=== PATIENT | female | born 1995 | race Caucasian/White ===

== ENCOUNTER 2023-04-25 06:52 | Inpatient (IN) | payer MEDICAID, SELFPAY ==
[2023-04-25] VITALS (84 sets, daily range): BP systolic 106–199; BP diastolic 57–112; PULSE 67–100; RESP 16–18; TEMP 36.5–36.7; O2SAT 96–100; BMI 37.7
--- NOTE | 2023-04-25 07:07 | P.OBHP_ITS ---
OB - H&P: HPI Labor/Induction History of Present Illness Date Seen: 04/25/23 Chief Complaint: IOL Chief complaint: maternity : 3 Para: 2 Narrative: Trinity Duval is a 27 year old female 3 para 2 at 39 weeks 4 days gestation by 1st trimester ultrasound, who presents for induction of labor for dates. She has felt well through her and has had no concerns. She was induced for 2 prior pregnancies and both were pretty fast labors that were uncomplicated. History of Present Dating criteria: based on LMP care: good care Ultrasounds: normal 1st trimester US and normal mid trimester US Medical complications: none Labs Blood type: O (+) positive Rubella: immune RPR/VDLR: nonreactive GBS status: negative HBsAG: negative Review of Systems Status of ROS: Reports: 10 or more systems reviewed and unremarkable except as noted in History and below Meds Home Medications and Allergies Home Medications Medication Instructions Recorded Confirmed Type vitamin with calcium 1 tab PO DAILY 04/25/23 04/25/23 History no.72-iron 27 mg-folic acid 1 mg tablet (WesTab Plus) Home Medication Comments: vitamin Allergies Allergy/AdvReac Type Severity Reaction Status Date / Time amoxicillin [From Augmentin] Allergy Unknown Verified 04/25/23 08:58 cefaclor Allergy Unknown Verified 04/25/23 08:54 clavulanic acid Allergy Unknown Verified 04/25/23 08:58 [From Augmentin] codeine Allergy Unknown Verified 04/25/23 08:54 lisdexamfetamine Allergy Unknown Verified 04/25/23 08:58 [From Vyvanse] OB - H&P: Exam Constitutional: Constitutional: no acute distress Routine HEENT Exam: Eye: Present normal appearance ENT: Present mucous membranes moist Routine Respiratory Exam: Respiratory: Present CTA bilaterally; Absent crackles Routine Cardiovascular Exam: Cardiovascular: RRR Detailed Labor and Delivery Exam: Patient Gravid: Yes Dilation (cm): 0 Effacement (%): 0 Cervix position: posterior Consistency: firm Cervical ripeness score: 0 Contraction frequency (min): 0 Fetus (Single): Heart Rate Baseline: 140 Monitor Accelerations: Present Monitor Decelerations: None Senior Living Variability: Moderate (6-25) OB - Problem Based A/P Additional Plan (1) Gestational hypertension: Status: Acute Plan Initially planned to induce for elective reasons but blood pressure was high on admission, first at 160/110, then came down to 140s/90s. Because she had one elevated blood pressure last week, she meets criteria for gestational hypertension. Will continue with plan for induction now and get preeclampsia labs. Will do cytotec per protocol due to unfavorable cervix with dailey of 0. Manage expectantly. Monitor BP per protocol. Delivery/Labor/Induction Plan Plan: induction Induction method: per misoprostol protocol
[2023-04-25 08:21] LABS: Hematocrit 37.7 % (33.0-51.0); Hemoglobin* 12.4 gm/dL (12.0-16.0); Mean Corpuscular HGB Conc 33 gm/dL (32-36); Mean Corpuscular Hemoglobin 28 pg (26-34); Mean Corpuscular Volume 85 fL (80-100); Platelet Count* 235 K/uL (140-440); Red Blood Count 4.42 m/uL (4.00-5.20); White Blood Count* 12.05 K/uL (4.50-11.00)
[2023-04-25] MEDS: miSOPROStoL 25 MCG/0.25 TABLET VAGINAL (08:23)
[2023-04-25 08:29] LABS: Slide Review Reflex No
[2023-04-25 08:47] LABS: Alanine Aminotransferase* 16 U/L (4-35); Aspartate Amino Transferase* 22 U/L (12-35); Blood Urea Nitrogen* 11 mg/dL (5-24); Creatinine* 0.4 mg/dL (0.5-1.5); Est. Creatinine Clearance* 247.01; Estimated Glomerular Filt Rate 137 ml/min
[2023-04-25 09:45] LABS: Total Protein Urine < 5 mg/dL
[2023-04-25 09:46] LABS: Creatinine Urine 274.3 mg/dL
[2023-04-25] MEDS: LACTATED RINGERS 1000 ML 1,000 ML 125 ML IV ×2 (12:44→15:09)
[2023-04-25] MEDS: OXYTOCIN 30 unit/500 ML in NS 30 UNIT/500 ML BAG IVPB (12:45)
[2023-04-25] MEDS: LACTATED RINGERS 1000 ML 1,000 ML 1200 ML IV (13:37)
[2023-04-25] MEDS: ROPIVACAINE 0.2% 100 ml 100 ML 12 MG EPIDURAL (13:45)
[2023-04-25] MEDS: PHENYLEPHRINE 100 MCG/ML SYRINGE IVP ×2 (14:14→14:32)
[2023-04-25] MEDS: LIDOCAINE 2% (PF) 5 ML VIAL EPIDURAL ×3 (15:37→18:05)
--- NOTE | 2023-04-25 16:56 | P.ANBPRC_ITS ---
PFSH PFSH Social History What is your current living situation?: I presently have a place to live Problems where you live: no known problems In the past 12 months, utilities in danger of being shut off: no In past 12 months, lack of transportation kept you from medical appts, meetings, work, or getting things needed for daily living: no In the past 12 mos, have been you worried that your food would run out before you had money to buy more?: never true In the past 12 mos, the food you bought just didn't last and you didn't have money to buy more?: never true Smoking Status: Former smoker How often does anyone, including family, friends and others, physically hurt you : never How often does anyone, including family, friends and others, insult or talk down to you: never How often does anyone, including family, friends and others, threaten you with harm: never How often does anyone, including family, friends and others, scream or curse at you: never Meds Home Medications and Allergies Home Medications Medication Instructions Recorded Confirmed Type vitamin with calcium 1 tab PO DAILY 04/25/23 04/25/23 History no.72-iron 27 mg-folic acid 1 mg tablet (WesTab Plus) Allergies Allergy/AdvReac Type Severity Reaction Status Date / Time amoxicillin [From Augmentin] Allergy Unknown Verified 04/25/23 08:58 cefaclor Allergy Unknown Verified 04/25/23 08:54 clavulanic acid Allergy Unknown Verified 04/25/23 08:58 [From Augmentin] codeine Allergy Unknown Verified 04/25/23 08:54 lisdexamfetamine Allergy Unknown Verified 04/25/23 08:58 [From Vyvanse] Results Labs Labs: Laboratory Results - last 24 hr 04/25/23 04/25/23 08:09 Unknown WBC 12.05 H RBC 4.42 Hgb 12.4 Hct 37.7 MCV 85 MCH 28 MCHC 33 Plt Count 235 BUN 11 Creatinine 0.4 L Estimated Creat Clear 247.01 Estimated GFR 137 AST 22 ALT 16 Urine Creatinine 274.3 Protein/Creatinin Ratio 0.00 Urine Total Protein < 5 Blood Type O Positive Antibody Screen NEGATIVE Vital Signs Vital Signs: Last Vital Signs Temp 97.9 F 04/25/23 15:35 Pulse 76 04/25/23 16:51 Resp 16 04/25/23 15:35 BP 131/74 04/25/23 16:51 Pulse Ox 100 04/25/23 13:37 Weight: 129.727 kg Height: 185.42 cm Anesthesia Procedures Epidural Insertion Patient Location: OB Start Time: 13:15 Stop Time: 14:15 Start Date: 04/25/23 Stop Date: 04/25/23 Reason for Block: procedure for pain Patient Position: sitting Performed By: Damian Moreno Preanesthetic Checklist: IV checked, risks and benefits discussed, surgical consent, monitors and equipment checked, pre-op evaluation, timeout performed and anesthesia consent Prep: chlorhexidine gluconate Monitoring: blood pressure monitoring, continuous pulse oximetry and heart rate Approach: midline Vertebral Space: lumbar (1-5) Epidural Technique: MAYELA saline Needle Type: Tuohy needle Injection Technique: continuous catheter Needle gauge: 17 Needle Length (cm): 10 cm Needle Insertion Depth (cm): 9 Catheter Gauge: 19 Catheter Type: multi-orifice Catheter at skin depth (cm): 15 Test Dose Result: negative and lidocaine 1.5% with epinephrine 1 to 200,000
[2023-04-25] MEDS: fentaNYL 100 MCG/2 ML inj EPIDURAL (18:05)
--- NOTE | 2023-04-25 18:05 | P.OBPN_ITS ---
Subjective Time Seen by Provider: 17:30 Date Seen: 04/25/23 Narrative: Had good change with 1 dose of cytotec and changed to pitocin about 1300. Has gotten an epidural but it has not been working well and she is quite uncomfortable. Only on 3 of pitocin. [place] a gush just before exam. Objective Exam: Cervix: 4.5/50%/-2 FHT 140 with moderate variability and positive accelerations, no decels [place]: irregular Vital Signs: Last Vital Signs Temp 98.1 F 04/25/23 17:06 Pulse 84 04/25/23 17:06 Resp 18 04/25/23 17:06 BP 141/83 H 04/25/23 17:06 Pulse Ox 100 04/25/23 17:59 Assessment Heart Rate Baseline: 140 Monitor Accelerations: Present Monitor Decelerations: None Plan Plan: BP has been in range through most of labor. No severe pressures. HELLP labs negative. UPCR negative. Continue to increase pitocin as tolerated. Not in active labor yet but will hopefully go quick once it starts. Redose epidural per anesthesia. Anticipate .
--- NOTE | 2023-04-25 18:19 | P.ANBPRC_ITS ---
PFSH PFSH Social History What is your current living situation?: I presently have a place to live Problems where you live: no known problems In the past 12 months, utilities in danger of being shut off: no In past 12 months, lack of transportation kept you from medical appts, meetings, work, or getting things needed for daily living: no In the past 12 mos, have been you worried that your food would run out before you had money to buy more?: never true In the past 12 mos, the food you bought just didn't last and you didn't have money to buy more?: never true Smoking Status: Former smoker How often does anyone, including family, friends and others, physically hurt you : never How often does anyone, including family, friends and others, insult or talk down to you: never How often does anyone, including family, friends and others, threaten you with harm: never How often does anyone, including family, friends and others, scream or curse at you: never Meds Home Medications and Allergies Home Medications Medication Instructions Recorded Confirmed Type vitamin with calcium 1 tab PO DAILY 04/25/23 04/25/23 History no.72-iron 27 mg-folic acid 1 mg tablet (WesTab Plus) Allergies Allergy/AdvReac Type Severity Reaction Status Date / Time amoxicillin [From Augmentin] Allergy Unknown Verified 04/25/23 08:58 cefaclor Allergy Unknown Verified 04/25/23 08:54 clavulanic acid Allergy Unknown Verified 04/25/23 08:58 [From Augmentin] codeine Allergy Unknown Verified 04/25/23 08:54 lisdexamfetamine Allergy Unknown Verified 04/25/23 08:58 [From Vyvanse] Results Labs Labs: Laboratory Results - last 24 hr 04/25/23 04/25/23 08:09 Unknown WBC 12.05 H RBC 4.42 Hgb 12.4 Hct 37.7 MCV 85 MCH 28 MCHC 33 Plt Count 235 BUN 11 Creatinine 0.4 L Estimated Creat Clear 247.01 Estimated GFR 137 AST 22 ALT 16 Urine Creatinine 274.3 Protein/Creatinin Ratio 0.00 Urine Total Protein < 5 Blood Type O Positive Antibody Screen NEGATIVE Vital Signs Vital Signs: Last Vital Signs Temp 98.1 F 04/25/23 17:06 Pulse 100 04/25/23 18:16 Resp 18 04/25/23 17:06 BP 135/77 04/25/23 18:16 Pulse Ox 100 04/25/23 17:59 Weight: 129.727 kg Height: 185.42 cm Anesthesia Procedures Epidural Insertion Patient Location: OB Start Time: Stop Time: 18:20 Start Date: 04/25/23 Stop Date: 04/25/23 Reason for Block: procedure for pain Patient Position: sitting Performed By: Damian Moreno Preanesthetic Checklist: IV checked, risks and benefits discussed, surgical consent, monitors and equipment checked, pre-op evaluation, timeout performed and anesthesia consent Prep: chlorhexidine gluconate Monitoring: blood pressure monitoring, continuous pulse oximetry and heart rate Approach: midline Vertebral Space: lumbar (1-5) Epidural Technique: MAYELA saline Needle Type: Tuohy needle Injection Technique: continuous catheter Needle gauge: 17 Needle Length (cm): 10 cm Needle Insertion Depth (cm): 10 Catheter Gauge: 19 Catheter Type: multi-orifice Catheter at skin depth (cm): 17 Test Dose Result: negative and lidocaine 1.5% with epinephrine 1 to 200,000
--- NOTE | 2023-04-25 20:11 | W.PM.VAGDEL1 ---
Procedure Procedure Done: Global Procedure Details: Induction for gestational hypertension at 39 4/7. 1 dose of cytotec, then transitioned to pitocin. Epidural for analgesia. Progressed to complete and rapidly delivered a in the bed. I was there for delivery. Cord clamped x2 and cut after 2 minutes. Apgars 9 and 9. Small periurethral laceration, not bleeding. No repair. Placenta delivered intact and spontaneously. No complications. Events: Gestational Hypertension Intrapartal Events: Labor Augmentation and Labor Induction Delivery monitor: external FHT Route of delivery: Laceration description: Periurethral - 1st Degree Estimated blood loss (mL): 100 Anesthesia type: Epidural Disposition: floor [place] Infant Gender: Male presentation: vertex Placental Delivery Description: Spontaneous Cord Description: 3 Vessels
[2023-04-26] VITALS (7 sets, daily range): BP systolic 122–156; BP diastolic 74–94; PULSE 66–82; RESP 16; TEMP 36.4–36.8; O2SAT 97–98
[2023-04-26] MEDS: ACETAMINOPHEN 500 MG TABLET 1000 MG PO ×2 (04:45→22:50)
[2023-04-26] MEDS: IBUPROFEN 600 MG TABLET PO ×2 (09:17→21:08)
[2023-04-26] MEDS: DOCUSATE SODIUM 100 MG CAPSULE PO (09:24)
[2023-04-26] MEDS: NIFEdipine 30 MG TAB.ER.24 PO (10:23)
[2023-04-26 10:39] LABS: Hematocrit 32.2 % (33.0-51.0); Hemoglobin* 10.8 gm/dL (12.0-16.0); Mean Corpuscular HGB Conc 34 gm/dL (32-36); Mean Corpuscular Hemoglobin 28 pg (26-34); Mean Corpuscular Volume 85 fL (80-100); Platelet Count* 204 K/uL (140-440); White Blood Count* 11.55 K/uL (4.50-11.00)
[2023-04-26 10:47] LABS: Slide Review Reflex No
[2023-04-26 10:50] LABS: Aspartate Amino Transferase* 23 U/L (12-35); Creatinine* 0.4 mg/dL (0.5-1.5); Est. Creatinine Clearance* 247.01; Estimated Glomerular Filt Rate 137 ml/min
[2023-04-26 10:51] LABS: Alanine Aminotransferase* 14 U/L (4-35); Blood Urea Nitrogen* 7 mg/dL (5-24)
[2023-04-26] MEDS: MAGNESIUM IV 4 GM/100 ML PIGGYBACK IVPB (11:48)
[2023-04-26] MEDS: SODIUM CHLORIDE 0.9 % (FLUSH) 10 ML SYRINGE IVF (11:50)
[2023-04-26] MEDS: LACTATED RINGERS 1000 ML IV (11:50)
--- NOTE | 2023-04-26 11:51 | P.OBPN_ITS ---
OB - PN:Subj Subjective Time Seen by Provider: 11:51 Date Seen: 04/26/23 Patient comments OB post-: no complaints, pain well controlled, tolerating diet and flatus present infant status: bottle and doing well OB - PN: Obj Exam Physical Exam: Vital signs: Temp Pulse Resp BP Pulse Ox O2 Del Method 97.5 F L 72 16 156/94 H 97 Room Air 04/26/23 08:00 04/26/23 09:45 04/26/23 09:45 04/26/23 09:45 04/26/23 09:45 04/26/23 09:45 Constitutional: Constitutional: no acute distress Routine HEENT Exam: Head: Present atraumatic and normal inspection ENT: Present mucous membranes moist Routine Chest/Breast/Axilla Exam: Chest wall: Absent tenderness Routine Respiratory Exam: Respiratory: Present CTA bilaterally Routine Cardiovascular Exam: Cardiovascular: Present RRR, S1 and S2; Absent murmur Routine Rectal Exam: Patient deferred: visual exam Routine Exam: Patient deferred: external exam Routine Extremities Exam: Extremities: Present full ROM; Absent calf tenderness or pedal edema Routine Back/Spine/Pelvis Exam: Back/Spine: Present full ROM Routine Neurological Exam: Neurological: Present alert and oriented X3 Routine Psychiatric Exam: Psychiatric: Present normal affect OB - PN: Obj Data Labs Labs: Laboratory Results - last 24 hr 04/26/23 10:28 WBC 11.55 H RBC 3.80 L Hgb 10.8 L Hct 32.2 L MCV 85 MCH 28 MCHC 34 Plt Count 204 BUN 7 Creatinine 0.4 L Estimated Creat Clear 247.01 Estimated GFR 137 AST 23 ALT 14 OB - PN: A/P Delivery Assessment and Plan (1) Gestational hypertension: Status: Acute (2) Preeclampsia in period: Problem details: Had severe range blood pressures overnight 04/25-04/26. Status: Acute Assessment and Plan: - Preeclampsia labs reassuring. - Severe range blood pressures immediately following delivery. Magnesium was not started then, but I discussed with DIRECTOR OF TAX SERVICES that we should start magnesium now for these elevated BPs. - Nifedipine started for bp control. - q6h labs - Ins/outs. (3) (normal spontaneous vaginal delivery): Status: Acute Assessment and Plan: - recovering well from vaginal delivery Plan - Start magnesium now, monitor BPs closely Plan day: 1 Comments: - see above. Will need to stay until blood pressures reliably <130/80 and 24 hours of magnesium completed.
[2023-04-26 18:02] LABS: Hematocrit 31.7 % (33.0-51.0); Hemoglobin* 10.4 gm/dL (12.0-16.0); Mean Corpuscular HGB Conc 33 gm/dL (32-36); Mean Corpuscular Hemoglobin 28 pg (26-34); Mean Corpuscular Volume 86 fL (80-100); Platelet Count* 206 K/uL (140-440); Red Blood Count 3.68 m/uL (4.00-5.20); White Blood Count* 11.92 K/uL (4.50-11.00)
[2023-04-26 18:09] LABS: Slide Review Reflex No
[2023-04-26 18:15] LABS: Alanine Aminotransferase* 16 U/L (4-35); Aspartate Amino Transferase* 22 U/L (12-35); Blood Urea Nitrogen* 8 mg/dL (5-24); Creatinine* 0.5 mg/dL (0.5-1.5); Est. Creatinine Clearance* 197.61; Estimated Glomerular Filt Rate 130 ml/min; Magnesium* 3.7 mg/dL (1.5-2.6)
[2023-04-26] MEDS: LACTATED RINGERS 1000 ML 1,000 ML 75 ML IV (23:20)
[2023-04-26 23:41] LABS: Hematocrit 32.1 % (33.0-51.0); Hemoglobin* 10.7 gm/dL (12.0-16.0); Mean Corpuscular HGB Conc 33 gm/dL (32-36); Mean Corpuscular Hemoglobin 29 pg (26-34); Mean Corpuscular Volume 86 fL (80-100); Platelet Count* 223 K/uL (140-440); Red Blood Count 3.73 m/uL (4.00-5.20); White Blood Count* 11.97 K/uL (4.50-11.00)
[2023-04-26 23:45] LABS: Slide Review Reflex No
[2023-04-27 00:08] LABS: Aspartate Amino Transferase* 21 U/L (12-35); Creatinine* 0.5 mg/dL (0.5-1.5); Est. Creatinine Clearance* 197.61; Estimated Glomerular Filt Rate 130 ml/min
[2023-04-27 00:09] LABS: Alanine Aminotransferase* 13 U/L (4-35); Blood Urea Nitrogen* 8 mg/dL (5-24)
[2023-04-27 04:06] VITALS: BP 114/71; PULSE 75; RESP 16; TEMP 36.6; O2SAT 97
[2023-04-27] MEDS: IBUPROFEN 600 MG TABLET PO ×3 (04:14→19:32)
[2023-04-27 05:44] LABS: Hematocrit 29.3 % (33.0-51.0); Hemoglobin* 9.7 gm/dL (12.0-16.0); Mean Corpuscular HGB Conc 33 gm/dL (32-36); Mean Corpuscular Hemoglobin 28 pg (26-34); Mean Corpuscular Volume 86 fL (80-100); Platelet Count* 189 K/uL (140-440); Red Blood Count 3.42 m/uL (4.00-5.20)
[2023-04-27 05:48] LABS: Slide Review Reflex No
[2023-04-27 05:56] LABS: Alanine Aminotransferase* 12 U/L (4-35); Aspartate Amino Transferase* 21 U/L (12-35); Blood Urea Nitrogen* 7 mg/dL (5-24); Creatinine* 0.5 mg/dL (0.5-1.5); Est. Creatinine Clearance* 197.61; Estimated Glomerular Filt Rate 130 ml/min
[2023-04-27 06:04] LABS: Magnesium* 4.8 mg/dL (1.5-2.6)
[2023-04-27 06:38] LABS: Magnesium* 4.2 mg/dL (1.5-2.6)
[2023-04-27 08:21] VITALS: BP 124/73; PULSE 75; RESP 16; TEMP 36.4
[2023-04-27] MEDS: ACETAMINOPHEN 500 MG TABLET 1000 MG PO ×3 (08:25→22:46)
[2023-04-27] MEDS: NIFEdipine 30 MG TAB.ER.24 PO (08:25)
--- NOTE | 2023-04-27 09:07 | P.OBPN_ITS ---
OB - PN:Subj Subjective Date Seen: 04/27/23 Patient comments OB post-: no complaints [place] status: bottle feeding status: exclusively bottle feeding OB - PN: Obj Exam Physical Exam: Vital signs: Temp Pulse Resp BP Pulse Ox O2 Del Method 97.5 F L 75 16 124/73 97 Room Air 04/27/23 08:21 04/27/23 08:21 04/27/23 08:21 04/27/23 08:21 04/27/23 04:06 04/27/23 04:06 Constitutional: Constitutional: no acute distress Routine Abdominal Exam: Abdominal: Present soft Fundus: Present firm Comments: Uterus 1 cm below umbilicus. Abdomen without tenderness. Additional findings: Additional findings: Legs without edema OB - PN: Obj Data Labs Labs: Laboratory Results - last 24 hr 04/26/23 04/26/23 04/26/23 10:28 17:50 23:35 WBC 11.55 H 11.92 H 11.97 H RBC 3.80 L 3.68 L 3.73 L Hgb 10.8 L 10.4 L 10.7 L Hct 32.2 L 31.7 L 32.1 L MCV 85 86 86 MCH 28 28 29 MCHC 34 33 33 Plt Count 204 206 223 BUN 7 8 8 Creatinine 0.4 L 0.5 0.5 Estimated Creat Clear 247.01 197.61 197.61 Estimated GFR 137 130 130 Magnesium 3.7 H 4.2 H* AST 23 22 21 ALT 14 16 13 04/27/23 05:33 WBC 9.80 RBC 3.42 L Hgb 9.7 L Hct 29.3 L MCV 86 MCH 28 MCHC 33 Plt Count 189 BUN 7 Creatinine 0.5 Estimated Creat Clear 197.61 Estimated GFR 130 Magnesium 4.8 H* AST 21 ALT 12 OB - PN: A/P Delivery Assessment and Plan (1) Gestational hypertension: Status: Acute Assessment and Plan: Continue magnesium for 24 hours (off around noon) Continue nifedipine. Ok to d/c tomorrow AM if BP have remained <130/80. (2) Preeclampsia in period: Problem details: Had severe range blood pressures overnight 04/25-04/26. Status: Acute (3) (normal spontaneous vaginal delivery): Status: Acute
[2023-04-27 11:49] VITALS: BP 125/73; PULSE 84; RESP 16; TEMP 36.3; O2SAT 97
[2023-04-27 12:08] LABS: Hematocrit 31.8 % (33.0-51.0); Hemoglobin* 10.5 gm/dL (12.0-16.0); Mean Corpuscular HGB Conc 33 gm/dL (32-36); Mean Corpuscular Hemoglobin 28 pg (26-34); Mean Corpuscular Volume 86 fL (80-100); Platelet Count* 223 K/uL (140-440); Red Blood Count 3.71 m/uL (4.00-5.20); White Blood Count* 9.75 K/uL (4.50-11.00)
[2023-04-27 12:13] LABS: Slide Review Reflex No
[2023-04-27 12:18] LABS: Alanine Aminotransferase* 12 U/L (4-35); Aspartate Amino Transferase* 20 U/L (12-35); Blood Urea Nitrogen* 8 mg/dL (5-24); Creatinine* 0.5 mg/dL (0.5-1.5); Est. Creatinine Clearance* 197.61; Estimated Glomerular Filt Rate 130 ml/min
[2023-04-27 12:32] LABS: Magnesium* 4.7 mg/dL (1.5-2.6)
[2023-04-27 16:14] VITALS: BP 139/78; PULSE 82; RESP 16; TEMP 36.4; O2SAT 98
[2023-04-27 19:51] VITALS: BP 133/74; PULSE 80; RESP 16; TEMP 36.7; O2SAT 96
[2023-04-28 01:05] VITALS: BP 130/79; PULSE 78; RESP 16; TEMP 36.6; O2SAT 96
[2023-04-28] MEDS: IBUPROFEN 600 MG TABLET PO ×2 (01:07→08:46)
[2023-04-28 03:51] VITALS: BP 132/80; PULSE 75; RESP 16; TEMP 36.8; O2SAT 96
[2023-04-28] MEDS: ACETAMINOPHEN 500 MG TABLET 1000 MG PO (03:58)
--- NOTE | 2023-04-28 07:55 | P.DS_ITS ---
DS: Providers Provider Time Seen by Provider: 07:55 Date Seen: 04/28/23 Date of admission: 04/25/23 06:52 Primary care physician: Gaviota Trinidad PA-C Admitting Clinician: Bill Marin MD Attending Physician on discharge: Bill Marin MD Date of Discharge: 04/28/23 DS: Diagnosis Discharge Diagnosis (1) Preeclampsia in period: Status: Acute Problem details: Had severe range blood pressures overnight 04/25-04/26. Magnesium 24hours . On nifedipine ER 30mg. BP's overnight 130's/80's. No headaches or vision symptoms. feels well. discussed optimal levels <130/80 and risks uncontrolled bp. BP's have been <140/90. Discussed keeping and increasing nifedipine for optimal control vs discharge home with bp cuff, close monitoring and followup tomorrow. Risks vs benefits of each reviewed. pt really wants to go home with close followup. Will d/c with bp cuff. keep log. Continue nifedipine. warning s/s reviewed. Followup in clinic tomorrow. (2) Gestational hypertension: Status: Acute (3) (normal spontaneous vaginal delivery): Status: Acute Exam Const: Vital Signs, click to edit/add: Vital Signs - 24 hr 04/27/23 08:21 04/27/23 11:49 04/27/23 16:14 Temperature 97.5 F L 97.4 F L 97.5 F L Pulse Rate [Pulse Oximeter] 75 84 82 Respiratory Rate 16 16 16 Blood Pressure [Le ft Calf] 124/73 125/73 139/78 Pulse Oximetry 97 98 Oxygen Delivery Me thod Room Air Room Air 04/27/23 19:51 04/28/23 01:05 04/28/23 03:51 Temperature 98.0 F 98 F 98.2 F Pulse Rate [Pulse Oximeter] 80 78 75 Respiratory Rate 16 16 16 Blood Pressure [Le ft Calf] 133/74 130/79 132/80 Pulse Oximetry 96 96 96 Oxygen Delivery Me thod Room Air Room Air Room Air Documenting provider has reviewed patient's vital signs: yes Common normals: no apparent distress and oriented x3 General appearance: cooperative and comfortable Orientation/consciousness: Yes awake HENMT: Common normals: normocephalic Head and scalp: normocephalic Nose: nares normal Eye: General eye: normal appearance of both eyes Resp: Common normals: normal respiratory effort and clear to auscultation bilaterally Auscultation: clear to auscultation bilaterally Cardio: Common normals: regular rate and regular rhythm Rate: regular rate Rhythm: regular rhythm : Uterus: U/1 and firm Extremity: Other: +1+ edema Neuro: Common normals: oriented x3 Sensorium/orientation: awake OB - DS: Summary Hospital Course Hospital Course: The patient is a 27 year old G 3 P 2 at 39 4/7 weeks gestation that was admitted to the Center on 04/25/23 for induction, found to have new diagnosis gestational htn. She had an uncomplicated vaginal delivery. She delivered a viable male infant. She is bottle feeding. pt developed severe preeclampsia by BP criteria, was on magnesium for 24 hours, stopped yesterday at noon. No headaches or concerns. [place] mild. BP's 130's/80's overnight. Feels well. discussed optimal levels <130/80 and risks uncontrolled bp. BP's have been <140/90. Discussed keeping and increasing nifedipine for optimal control vs discharge home with bp cuff, close monitoring and followup tomorrow. Risks vs benefits of each reviewed. pt really wants to go home with close followup. Will d/c with bp cuff. keep log. Continue nifedipine. warning s/s reviewed. Followup in clinic tomorrow. Time spent discussing smoking cessation with patient: more than 10 minutes Peripartum Data Infant delivery method: Vaginal [place] Infant Gender: Male Time Spent with Patient Time attestation: Total time spent providing and/or coordinating discharge services: Discharge Plan Discharge Disposition: Home, Self-Care Date of Admission: 04/25/23 06:52 Primary Care Provider: Gaviota Trinidad Condition: Stable Anticipated Discharge Date/Time: 04/28/23 12:04 Discharge Medications: New nifedipine 30 mg Tablet Extended Release 24hr 30 mg PO DAILY Qty: 30 0RF acetaminophen 500 mg Tablet 1,000 mg PO Q6H PRN (Reason: pain/fever) Qty: 60 0RF docusate sodium 100 mg Capsule 100 mg PO DAILY Qty: 30 0RF ibuprofen 600 mg Tablet 600 mg PO Q6H PRNQty: 30 0RF Continued WesTab Plus 27 mg iron- 1 mg tablet 1 tab PO DAILY Discharge Orders: Discharge Order (Routine); Ordered 04/28/23 Ordered By: Glenna Perez Patient Education: Preeclampsia and Eclampsia After Delivery (GEN), OB Vaginal/Bottle Feeding Follow Up Appointments: Gaviota Trinidad PA-C [Primary Care Provider] - Forms: [employer] Info Instructions
[2023-04-28 08:41] VITALS: BP 129/75; PULSE 79; RESP 16; TEMP 36.6; O2SAT 97
[2023-04-28 08:46] VITALS: TEMP 36.6
[2023-04-28] MEDS: NIFEdipine 30 MG TAB.ER.24 PO (08:47)
[2023-04-28] MEDS: DOCUSATE SODIUM 100 MG CAPSULE PO (08:47)
== END 2023-04-28 10:50 | disposition home or self-care (01) | DRG 807 ==
PROVIDERS: Family Medicine; Admitting Provider Surgery; PCP Physician Assistant Medical; Visit Provider Surgery
DX: O13.4 Gestational [pregnancy-induced] hypertension without significant proteinuria, complicating childbirth (principal); Z37.0 Single live birth; Z3A.39 39 weeks gestation of pregnancy; O70.0 First degree perineal laceration during delivery; O14.15 Severe pre-eclampsia, complicating the puerperium
CPT/HCPCS: 01967; 36415; 59200; 82565; 82570; 83735; 84156; 84450; 84460; 84520; 85027; 86850; 86900; 86901; A9270; J2371; J2795; J3010; J3475; J7120; S0020

== ENCOUNTER 2023-04-30 17:22 | Emergency (ER) | payer MEDICAID, SELFPAY ==
[2023-04-30 17:49] VITALS: BP 155/96; PULSE 75; RESP 18; TEMP 36.9; O2SAT 100; BMI 36.9
[2023-04-30 18:57] VITALS: BP 135/98
[2023-04-30] MEDS: METOCLOPRAMIDE HCL 5 MG/ML INJ 10 MG IVP (19:06)
[2023-04-30] MEDS: diphenhydrAMINE 50 MG/ML inj 25 MG IVP (19:06)
[2023-04-30] MEDS: LABETALOL HCL 100 MG TABLET 200 MG PO (19:06)
[2023-04-30] MEDS: LACTATED RINGERS 1000 ML 1,000 ML IV (19:06)
[2023-04-30 19:12] LABS: Basophils Absolute Auto 0.02 K/uL (0.00-0.30); Basophils Percent Auto 0.2 % (0.0-3.0); Eosinophils Absolute Auto 0.11 K/uL (0.00-0.50); Eosinophils Percent Auto 1.1 % (0.0-7.0); Hematocrit 33.4 % (33.0-51.0); Hemoglobin* 11.1 gm/dL (12.0-16.0); Immature Granulocytes Abs Auto 0.14 K/uL (0.00-0.30); Immature Granulocytes Pct Auto 1.4 %; Lymphocytes Absolute Auto 2.89 K/uL (0.90-2.90); Lymphocytes Percent Auto 28.6 % (20-44); Mean Corpuscular HGB Conc 33 gm/dL (32-36); Mean Corpuscular Hemoglobin 28 pg (26-34); Mean Corpuscular Volume 85 fL (80-100); Monocytes Percent Auto 7.1 % (0.0-11.0); Neutrophils Absolute Auto 6.21 K/uL (1.7-7.0); Neutrophils Percent Auto 61.6 % (42.0-72.0); Platelet Count* 274 K/uL (140-440); Red Blood Count 3.91 m/uL (4.00-5.20); White Blood Count* 10.09 K/uL (4.50-11.00)
[2023-04-30 19:14] LABS: Slide Review Reflex No
[2023-04-30 19:28] LABS: Albumin* 3.5 g/dL (3.3-5.0); Chloride* 109 mmol/L (96-114); Potassium* 4.1 mmol/L (3.6-5.1); Sodium* 139 mmol/L (135-149)
--- NOTE | 2023-04-30 19:28 | ED_ITS ---
HPI - General Adult General Date Seen: 04/30/23 Chief complaint: Post OB/Post- Complication Stated complaint: Migraine High blood pressure Time Seen by Provider: 04/30/23 18:04 Source: patient Mode of arrival: ambulatory Limitations: no limitations History of Present Illness HPI narrative: Patient is a 27-year-old female who in vaginal delivery 5 days ago presented to the emergency department for a headache and hypertension. Patient states migraine started this morning and she knows she was hypertensive. Of note after she gave she was hypertensive was kept in the hospital until 2 days ago for blood pressure control. She saw her OB yesterday they increased her nifedipine from 30 daily to 60 daily. She states she has thoughts of for family members who had issues with preeclampsia also. Denies lightheadedness, dizziness, chest pain, shortness of breath, fevers, chills. States she has no history of migraines in the past. She does appear relatively comfortable in bed at this time. No other concerns noted Related Data Home Medications Medication Instructions Recorded Confirmed vitamin with calcium 1 tab PO DAILY 04/25/23 04/25/23 no.72-iron 27 mg-folic acid 1 mg tablet (WesTab Plus) Previous Rx's Medication Instructions Recorded acetaminophen 500 mg tablet 1,000 mg (2 x 500 mg) PO Q6H PRN 04/28/23 pain/fever #60 tabs docusate sodium 100 mg capsule 100 mg PO DAILY #30 caps 04/28/23 ibuprofen 600 mg tablet 600 mg PO Q6H PRN #30 tabs 04/28/23 nifedipine 30 mg tablet,extended 30 mg PO DAILY #30 tabs 04/28/23 release 24 hr labetalol 200 mg tablet 200 mg PO BID #60 tabs 04/30/23 Allergies Allergy/AdvReac Type Severity Reaction Status Date / Time amoxicillin [From Augmentin] Allergy Unknown Verified 04/25/23 08:58 cefaclor Allergy Unknown Verified 04/25/23 08:54 clavulanic acid Allergy Unknown Verified 04/25/23 08:58 [From Augmentin] codeine Allergy Unknown Verified 04/25/23 08:54 lisdexamfetamine Allergy Unknown Verified 04/25/23 08:58 [From Vyvanse] Review of Systems Status of ROS: Reports: 10 or more systems reviewed and unremarkable except as noted in History and below PFSH PFSH Social History What is your current living situation?: I presently have a place to live Problems where you live: no known problems In the past 12 months, utilities in danger of being shut off: no In past 12 months, lack of transportation kept you from medical appts, meetings, work, or getting things needed for daily living: no In the past 12 mos, have been you worried that your food would run out before you had money to buy more?: never true In the past 12 mos, the food you bought just didn't last and you didn't have money to buy more?: never true Smoking Status: Former smoker How often does anyone, including family, friends and others, physically hurt you : never How often does anyone, including family, friends and others, insult or talk down to you: never How often does anyone, including family, friends and others, threaten you with harm: never How often does anyone, including family, friends and others, scream or curse at you: never Exam Narrative: Exam Narrative: Const: Well-nourished, Well-developed, in mild distress Eyes: PERRL, no conjunctival injection, and symmetrical lids HENT: Atraumatic external nose and ears. Moist mucous membranes. Neck: Symmetric, trachea midline, No thyromegaly. CVS: RRR, No murmurs or gallops. Peripheral pulses 2+ and equal in all extremities RESP: Unlabored respiratory effort. Clear to auscultation bilaterally. GI: Nontender/Nondistended, No rebound or guarding. MSK:Extremities w/o deformity, Normal Active ROM Skin: Warm, Dry. No rashes or lesions. Neuro: Normal Muscle tone, No focal neurological deficits. Psych: Awake, Alert, & Oriented x3. Appropriate mood and affect. Const: Vital Signs, click to edit/add: Vital Signs - 24 hr 04/30/23 17:49 04/30/23 18:57 Temperature 98.5 F Pulse Rate [Right Pulse Oximeter] 75 Respiratory Rate 18 Blood Pressure [Ri ght Upper Arm] 155/96 H 135/98 H Pulse Oximetry 100 Oxygen Delivery Me thod Room Air Course Vital Signs Vital signs: Initial Vital Signs Temperature 98.5 F 04/30/23 17:49 Temperature Source Temporal Artery Scan 04/30/23 17:49 Pulse Rate 75 04/30/23 17:49 Respiratory Rate 18 04/30/23 17:49 Blood Pressure 155/96 H 04/30/23 17:49 Blood Pressure Mean 115 H 04/30/23 17:49 Blood Pressure Position Sitting 04/30/23 17:49 Pulse Oximetry 100 04/30/23 17:49 Oxygen Delivery Method Room Air 04/30/23 17:49 Vital Signs Temperature 98.5 F 04/30/23 17:49 Pulse Rate 75 04/30/23 17:49 Respiratory Rate 18 04/30/23 17:49 Blood Pressure 155/96 H 04/30/23 17:49 Pulse Oximetry 100 04/30/23 17:49 Oxygen Delivery Method Room Air 04/30/23 17:49 Temperature 98.5 F 04/30/23 17:49 Pulse Rate 75 04/30/23 17:49 Respiratory Rate 18 04/30/23 17:49 Blood Pressure 135/98 H 04/30/23 18:57 Pulse Oximetry 100 04/30/23 17:49 Oxygen Delivery Method Room Air 04/30/23 17:49 Medical Decision Making MDM Narrative Medical decision making narrative: Patient's 27-year-old female presenting to emergency department for migraine. She has not had migraines like this before. She is G3 P 3 in gave 5 days ago. Her her hypertensive medicine was recently increased. At this time we will order a CBC, CMP, urinalysis. We will also give her fluids, Reglan, Benadryl for her migraine. I spoke to Dr. Ramirez and he states began start her on 200 mg of labetalol orally and increase her nifedipine from 60 to 90. He states as long as her blood pressure stays below 160/110 she can be discharged home. He is not concerned about the lab work at this time. Patient's symptoms resolved with the medication. Her blood pressure stayed within acceptable limits. She will be discharged home with the changes to her medications. She is agreeable to this plan. Lab Data Labs: Lab Results 04/30/23 Range/Units 18:56 WBC 10.09 (4.50-11.00) K/uL RBC 3.91 L (4.00-5.20) m/uL Hgb 11.1 L (12.0-16.0) gm/dL Hct 33.4 (33.0-51.0) % MCV 85 (80-100) fL MCH 28 (26-34) pg MCHC 33 (32-36) gm/dL RDW Coeff of Sea 13.0 (11.5-15.5) % Plt Count 274 (140-440) K/uL Neut % (Auto) 61.6 (42.0-72.0) % Lymph % (Auto) 28.6 (20-44) % [place] % (Auto) 7.1 (0.0-11.0) % Eos % (Auto) 1.1 (0.0-7.0) % Baso % (Auto) 0.2 (0.0-3.0) % Neut # (Auto) 6.21 (1.7-7.0) K/uL Lymph # (Auto) 2.89 (0.90-2.90) K/uL [place] # (Auto) 0.70 (0.00-0.90) K/UL Eos # (Auto) 0.11 (0.00-0.50) K/uL Baso # (Auto) 0.02 (0.00-0.30) K/uL Abs Immat Gran (auto) 0.14 (0.00-0.30) K/uL Imm/Tot Granulo (auto) 1.4 % Sodium 139 (135-149) mmol/L Potassium 4.1 (3.6-5.1) mmol/L Chloride 109 (96-114) mmol/L Carbon Dioxide 24 (20-32) mmol/L Anion Gap 6 L (7-15) mEq/L BUN 13 (5-24) mg/dL Creatinine 0.4 L (0.5-1.5) mg/dL Estimated Creat Clear 247.01 Estimated GFR 137 ml/min Glucose 88 (60-115) mg/dL Calcium 8.8 (8.4-10.6) mg/dL Total Bilirubin 0.2 (0.1-1.5) mg/dL AST 30 (12-35) U/L ALT 20 (4-35) U/L Alkaline Phosphatase 136 (40-150) U/L Total Protein 6.5 (6.0-8.3) g/dL Albumin 3.5 (3.3-5.0) g/dL Discharge Plan Discharge Clinical Impression: Preeclampsia in period Migraine Qualifiers: Migraine type: unspecified Status migrainosus presence: without status migrainosus Intractability: not intractable Qualified Code(s): G43.909 - Migraine, unspecified, not intractable, without status migrainosus Patient Disposition: Home, Self-Care Condition: Stable Instructions: Migraine Headache (ED) Additional Instructions: Take labetalol 200 mg daily. Increase nifedipine from 60 mg daily to 90 mg daily. Follow-up with Ob. Return for new or worsening symptoms. Take Tylenol for headache. Prescriptions: New labetalol 200 mg tablet 200 mg PO BID Qty: 60 0RF No Action WesTab Plus 27 mg iron- 1 mg tablet 1 tab PO DAILY nifedipine 30 mg Tablet Extended Release 24hr 30 mg PO DAILY Qty: 30 0RF acetaminophen 500 mg Tablet 1,000 mg PO Q6H PRN (Reason: pain/fever) Qty: 60 0RF docusate sodium 100 mg Capsule 100 mg PO DAILY Qty: 30 0RF ibuprofen 600 mg Tablet 600 mg PO Q6H PRNQty: 30 0RF Follow Up/Referrals: Gaviota Trinidad PA-C [Primary Care Provider] - Stand Alone Forms: DataArt Info Instructions
[2023-04-30 19:30] LABS: Anion Gap 6 mEq/L (7-15); Aspartate Amino Transferase* 30 U/L (12-35); Bilirubin Total* 0.2 mg/dL (0.1-1.5); Carbon Dioxide* 24 mmol/L (20-32); Creatinine* 0.4 mg/dL (0.5-1.5); Est. Creatinine Clearance* 247.01; Estimated Glomerular Filt Rate 137 ml/min
[2023-04-30 19:31] LABS: Alanine Aminotransferase* 20 U/L (4-35); Alkaline Phosphatase* 136 U/L (40-150); Blood Urea Nitrogen* 13 mg/dL (5-24); Calcium* 8.8 mg/dL (8.4-10.6); Glucose* 88 mg/dL (60-115); Total Protein* 6.5 g/dL (6.0-8.3)
[2023-04-30 20:00] VITALS: BP 134/78; PULSE 92; RESP 18; O2SAT 98
== END 2023-04-30 19:20 | disposition home or self-care (01) ==
PROVIDERS: Emergency Provider Student in an Organized Health Care Education/Training Program; PCP Physician Assistant Medical
DX: O14.95 Unspecified pre-eclampsia, complicating the puerperium (principal)
CPT/HCPCS: 36415; 80053; 81001; 85025; 96361; 96374; 96375; 99283; 99284; A9270; J1200; J2765; J7120